=== PATIENT | female | born 1960 | race Hispanic/Latino ===

== ENCOUNTER 2022-07-22 12:27 | Emergency (ER) | payer BC ==
[~2022-07-22] VITALS: Ht 157.5 cm; Wt 65.8 kg
[2022-07-22] MEDS ORDERED: SODIUM CHLORIDE 0.9% 1000ML 1,000 ML IV STA (12:44)
[2022-07-22 13:11] LABS: BASOPHILS % 0.3 % (0.0-1.0); EOSINOPHILS # (AUTO) 0.1 (0.0-0.4); EOSINOPHILS % 0.5 % (0.0-6.0); HEMATOCRIT 43.1 % (34.2-44.1); HEMOGLOBIN 13.8 g/dL (12.0-16.0); MEAN CORPUSCULAR HEMOGLOBIN 28.1 pg (28-32); MEAN CORPUSCULAR VOLUME 87.8 fL (81-99); MONOCYTES # (AUTO) 0.6 (0.2-0.8); MONOCYTES % 5.5 % (4.4-11.3); NEUTROPHILS # (AUTO) 7.4 (2.1-6.9); NEUTROPHILS % 66.5 % (38.7-80.0); PLATELET COUNT 300 x10e3/uL (140-360); RED BLOOD COUNT 4.91 x10e6/uL (3.6-5.1); RED CELL DISTRIBUTION WIDTH 12.8 % (11.7-14.4)
[2022-07-22 13:38] LABS: ALBUMIN 4.5 g/dL (3.5-5.0); ALBUMIN/GLOBULIN RATIO 1.4 (0.8-2.0); ANION GAP 19.7 mmol/L (8-16); CALCIUM 10.2 mg/dL (8.4-10.2); CREATININE, SERUM 0.8 mg/dL (0.57-1.11); POTASSIUM 4.7 mmol/L (3.5-5.1)
[2022-07-22] MEDS ORDERED: IOPAMIDOL 370 MG/ML 100 ML INFUS..BTL INJ ONE (14:02)
[2022-07-22] MEDS ORDERED: SODIUM CHLORIDE 0.9% 100 ML ONE (14:03)
== END 2022-07-22 14:49 | disposition home or self-care (01) ==
LOC: ER 12:42
DX: R10.31 Right lower quadrant pain (principal); R19.5 Other fecal abnormalities; I10 Essential (primary) hypertension; E11.9 Type 2 diabetes mellitus without complications; E78.5 Hyperlipidemia, unspecified
CPT/HCPCS: 36415; 74174; 80053; 83690; 85025; 99283; J7030; J7050; Q9967